=== PATIENT | male | born 1985 | race Two or more races ===

== ENCOUNTER 2025-07-26 09:47 | Inpatient (IN) | payer MEDICAID, SELFPAY ==
[2025-07-26] VITALS (7 sets, daily range): BP systolic 127–146; BP diastolic 69–81; PULSE 84–90; RESP 18–35; TEMP 37.4–38.9; O2SAT 97–100; BMI 27.1; BMI 28.4
--- NOTE | 2025-07-26 10:07 | XR_ITS ---
EXAMINATION: PA lateral chest 2 views TECHNIQUE: Upright PA lateral chest 2 views Date and time: July 26, 2025, 1035 hours INDICATIONS: Coughing beginning 3 days ago. FINDINGS: Minor prominence left ventricle No lobar pneumonia. No pulmonary edema IMPRESSION: No lobar pneumonia Recommend short-term follow-up chest imaging as clinically warranted
--- NOTE | 2025-07-26 10:07 | PD.EDRME ---
Rapid Medical Screening Exam [facility] Arrival date/time: 07/26/25 09:47 40-year-old male presents to the emergency department today for complaints of spider bite to the right side of his chest 4 days ago patient reports pain dizziness and weakness Chief Complaint: Skin/Abscess/Foreign Body Vital signs: Vital Signs Temperature 99.7 F 07/26/25 10:04 Pulse Rate 89 07/26/25 10:04 Respiratory Rate 20 07/26/25 10:04 Blood Pressure 127/69 07/26/25 10:04 Pulse Oximetry (%) 99 07/26/25 10:04 Oxygen Delivery Method Room Air 07/26/25 10:04 Vital signs reviewed by provider: Yes Exam: On exam patient has erythema right chest wall and right axilla Clinical Impression: Initial lab work and imaging ordered patient to be seen in the ER for further evaluation
[2025-07-26 10:31] LABS: Lactate (Lactic Acid) 2.1 mMol/L (0.4-2.0)
[2025-07-26 10:39] LABS: Basophils # (Auto) 0.1 Thou/mm3 (0.0-0.2); Basophils % (Auto) 0 % (0-2.5); Eosinophils # (Auto) 0.0 Thou/mm3 (0.0-0.5); Eosinophils % (Auto) 0 % (0-10); Hematocrit 41.1 % (41.0-53.0); Hemoglobin 13.8 g/dL (13.5-16.0); Immature Granulocytes Auto 0.41 Thou/mm3 (0.00-0.00); Lymphocytes # (Auto) 0.8 Thou/mm3 (1.0-4.8); Lymphocytes % (Auto) 3 % (10-50); Mean Corpuscular HGB Conc 33.6 g/dl (31.0-37.0); Mean Corpuscular Hemoglobin 30.3 pg (25.0-35.0); Mean Corpuscular Volume 90 fL (80-100); Monocytes # (Auto) 2.2 Thou/mm3 (0.0-0.8); Monocytes % (Auto) 8 % (0-12); Neutrophils # (Auto) 23.4 Thou/mm3 (1.8-7.7); Neutrophils % (Auto) 87 % (37-80); Nucleated Red Blood Cell # 0.00 Thou/mm3 (0.00-0.00); Nucleated Red Blood Cell % 0 /100 WBC (0); Platelet Count 216 Thou/mm3 (140-440); RDW Standard Deviation 40.2 fL (35.1-43.9); Red Blood Count 4.55 Miln/mm3 (4.50-5.90); White Blood Count 26.8 Thou/mm3 (3.8-10.6)
[2025-07-26 10:47] LABS: Collection Type, Urine Clean Catch
[2025-07-26 10:51] LABS: Bilirubin,Urine Negative (Negative); Blood,Urine Negative (Negative); Clarity,Urine Clear (Clear/Hazy); Color,Urine Yellow (Lt Yel-Yel); Glucose, Urine Trace (Negative); Ketones,Urine Negative (Negative); Leukocyte Esterase,Urine Negative (Negative); Nitrite,Urine Negative (Negative); PH,Urine 7.5 (5.0-7.0); Protein,Urine 2+ (Neg - Trace); RBC,Urine 1 /hpf (0-3); Specific Gravity,Urine 1.018 (1.001-1.035); Squamous Epithelial Cell,Urine < 1 /hpf (0-5); Urobilinogen,Urine Negative mg/dL (0.0-1.0); WBC,Urine 2 /hpf (0-5)
[2025-07-26 11:01] LABS: Alanine Aminotransferase 76 U/L (10-49); Albumin, Serum 4.6 gm/dL (3.5-5.0); Albumin/Globulin Ratio 1.6 (1.2-2.2); Alkaline Phosphatase 110 U/L (46-116); Anion Gap 10 (7-16); Aspartate Amino Transferase 29 U/L (0-34); BUN/Creatinine Ratio 6 Ratio (12-20); Bilirubin,Total 2.4 mg/dL (0.3-1.2); Blood Urea Nitrogen < 5 mg/dL (9-23); Calcium 9.3 mg/dL (8.3-10.6); Calcium (Corrected) 9.3 mg/dL (8.5-10.1); Carbon Dioxide 20.6 mMol/L (20.0-31.0); Chloride 96 mMol/L (98-107); Creatinine (Component) 0.8 mg/dL (0.6-1.3); Estimated Creatinine Clearance 125.5 mL/min (>60); Globulin 2.9 gm/dL (2.3-3.5); Glucose 204 mg/dL (74-106); Osmolality,Calculated 258 (275-295); Potassium 4.2 mMol/L (3.4-5.1); Procalcitonin 0.38 ng/ml (0.0-0.49); Sodium 127 mMol/L (136-145); Total Protein 7.5 gm/dL (5.7-8.2); eGFR > 60 See Note
[2025-07-26 11:12] LABS: Amphetamine/Methamp Scrn,U Positive (Negative); Barbiturate Screen,Urine Negative (Negative); Benzodiazepines Screen,Urine Negative (Negative); Benzoylecgonine Screen, Ur Negative (Negative); Fentanyl Screen,Urine Negative (Negative); Opiate Screen,Urine Negative (Negative); THC Screen,Urine Positive (Negative)
--- NOTE | 2025-07-26 11:24 | XR_ITS ---
Examination: CT chest with intravenous contrast 2-D sagittal and coronal reconstructions Exam date and time: July 26, 2025, 1243 hours INDICATIONS: Patient complains of chest pain right axillary pain today CTDI:vol (mGy) 14 DLP: (mGycm) 543 Technique: Multiple axial sections of the thorax have been obtained. Sections have been obtained, 3 mm slice thickness. Mediastinal and lung density settings have been obtained. Intravenous contrast administered, 60 cc Isovue-370 2-D sagittal, coronal images obtained. Low dose protocols were performed. One or more of the following dose reduction techniques were used; automated exposure control, adjustment of the mA and/or KV according to patient size, use of iterative reconstruction technique. Findings: Large focus of probable infectious change in the right axilla with edema extending into the breast and right lower lateral chest wall Edema extends beneath the pectoralis muscle right chest Thoracic aorta is not enlarged Pulmonary artery segments are poorly opacified No lobar pneumonia or pulmonary edema No visualized liver or splenic lesion Contracted gallbladder No pancreatic mass IMPRESSION: Very large focus of probable infection in the right axilla extending caudad along the lower chest wall and medial beneath the right pectoralis muscle Consider ultrasound right axilla follow-up to assess fluid content of this probable abscess
--- NOTE | 2025-07-26 11:27 | EKG_ITS ---
[facility] Test Date: 2025-07-26 Pat Name: TREMAYNE ACUNA Department: Room: - Gender: Male Email Marketing Coordinator: : 1985 Requested By: Blane Del Rio Order Number: [id number] Reading MD: Blane Del Rio Measurements Intervals [place] Rate: 88 P: 20 NJ: 123 QRS: 71 QRSD: 89 T: 39 QT: 306 QTc: 371 Interpretive Statements SINUS RHYTHM No previous ECG available for comparison /store/S0/[id number]/ecg/[id number].pdf
--- NOTE | 2025-07-26 11:29 | EDNOTE_ITS ---
<Statement entered by Bisi Espinoza MD - 08/03/25 14:15> As co-signing physician, I was present and available for consult prn. I concur with the plan and care as documented by the midlevel provider. ED General RME/HPI General Chief complaint: Skin/Abscess/Foreign Body Stated complaint: SPIDER BITE, DIZZY, WEAK Time Seen by Provider: 07/26/25 11:18 Arrival date/time: 07/26/25 09:47 CC: Right anterior chest pain and swelling HPI onset noticed 4 days ago calling it a spider bite . Patient took no OTC medicines. Last used methamphetamines 10 days ago denies nausea vomiting shortness of breath or difficulty breathing. RME / HPI RME / HPI narrative: 07/26/25 09:47 40-year-old male presents to the emergency department today for complaints of spider bite to the right side of his chest 4 days ago patient reports pain dizziness and weakness Exam: On exam patient has erythema right chest wall and right axilla Impression: Initial lab work and imaging ordered patient to be seen in the ER for further evaluation Related Data Allergies Allergy/AdvReac Type Severity Reaction Status Date / Time No Known Allergies Allergy Verified 07/26/25 09:50 Review of Systems Review of Systems Narrative Review of Systems: GEN: No fever, no chills, no weight loss EYES: No discharge, no visual changes, no pain HEENT: No ear pain, no congestion, no sore throat PULM: No shortness of breath, no cough, no congestion CV: + chest pain, no dyspnea on exertion, no palpitations GI: No nausea, no vomiting, no diarrhea, no pain, no constipation : No frequency, no urgency, no dysuria MUSC/SKEL: No joint pain, no back pain SKIN: No rash PSYCH: No hallucinations, no depression HEME/LYMPH: No easy bleeding or bruising tendencies NEURO: No weakness, no headache Past Medical History Social History SMOKING STATUS: Never smoker ED Exam Narrative Physical exam: [General: In moderate discomfort but not in any acute distress Head normocephalic HEENT: Within acceptable limits Neck is supple nontender Chest equal chest rise, tenderness edema erythema warm to touch in the right anterior chest extending from the axilla medially, diffuse poorly defined no strong border. No open lesions indurations no exudate. Tenderness in the axilla no lymphadenopathy. Respiratory: Clear to auscultation no wheezes crackles or rubs CV: Rate rhythm is regular no murmurs rubs or clicks Abdomen is soft nontender no masses positive bowel sounds all 4 quadrants Back: No CVA tenderness no spinous process tenderness from cervical spine thoracic and lumbar spine Skin: Erythema and edema to area just medial to the right axilla anterior chest. No open lesions induration ulcerations. Otherwise skin is intact no petechiae rash induration ulceration or crepitus Extremities: Moving all extremity against resistance cap refill less than 2 seconds neurosensory intact Neuro: Awake alert oriented x3 Glascow coma 15 no focal deficits] Course Course Course Narrative: Patient's case clinical finding laboratory results and imaging discussed with Dr. Arteaga who agrees to consult. She is recommending we follow-up with the ultrasound to determine if there are abscess pockets in the cellulitis area Quality Measures none Orders Category Date Time Status COVID-19 Screening Questionnaire NOW Care 07/26/25 15:[address] Screening NOW Care 07/26/25 11:25 Active Sheet Metal Assembler STAT Care 07/26/25 11:27 Active Continuous Pulse Oximetry STAT Care 07/26/25 11:27 Completed Decision to Admit X1 Care 07/26/25 15:30 Active EKG (ED ONLY) *Do not use* NOW Care 07/26/25 11:27 Completed In and Out Catheter X1PRN Care 07/26/25 11:27 Active Insert IV NOW Care 07/26/25 11:27 Completed NPO STAT Care 07/26/25 11:27 Active Saline [Insert IV] NOW Care 07/26/25 11:24 Completed Strict Intake and Output Routine Care 07/26/25 11:27 Ordered Consult to General Surgery Stat Cons 07/26/25 14:[address] chest w con Stat Exams 07/26/25 11:24 Completed EKG (ED Only) Stat Exams 07/26/25 11:27 Draft US extremity nonvascular LMTD Stat Exams 07/26/25 14:50 Completed XR chest 2V Stat Exams 07/26/25 10:07 Completed B-Type Natriuretic Peptide Stat Lab 07/26/25 11:40 Completed Blood Culture (Lab) Stat Lab 07/26/25 10:19 Received Blood Culture (Lab) Stat Lab 07/26/25 11:40 Received CBC Stat Lab 07/26/25 10:19 Completed CBC Stat Lab 07/26/25 11:40 Completed Comprehensive Metabolic Panel Stat Lab 07/26/25 10:19 Completed Drug Screen,Urine Stat Lab 07/26/25 10:43 Completed LDH (Lactate Dehydrogenase) Stat Lab 07/26/25 11:40 Completed Lactate (Lactic Acid) Stat Lab 07/26/25 10:19 Completed Lactic Acid, 3 HR Stat Lab 07/26/25 14:32 Completed Lipase Stat Lab 07/26/25 11:40 Completed Magnesium Stat Lab 07/26/25 11:40 Completed Partial Thromboplastin Time Stat Lab 07/26/25 11:40 Completed Phosphorous Stat Lab 07/26/25 11:40 Completed Procalcitonin Stat Lab 07/26/25 10:19 Completed Procalcitonin Stat Lab 07/26/25 11:40 Completed Prothrombin Time with INR Stat Lab 07/26/25 11:40 Completed Troponin I Stat Lab 07/26/25 11:40 Completed Urinalysis Stat Lab 07/26/25 10:41 Completed Urine Culture Stat Lab 07/26/25 10:43 Received Acetaminophen Ivpb [Ofirmev Inj] Med 07/26/25 12:35 Discontinued 1,000 mg in 100 ml IV NOW Morphine* Inj Med 07/26/25 13:18 Discontinued 4 mg IVP X1 ONE Ondansetron Inj [Zofran Inj] Med 07/26/25 13:18 Discontinued 4 mg IVP X1 ONE Piper/Tazo 3.375 gm Premix [Zosyn] Med 07/26/25 11:25 Discontinued 3.375 gm in 50 ml IV X1 Ringers Lactated 1000 ml [Lactated Ringers] 1,000 ml Med 07/26/25 11:24 Discontinued IV 999 mls/hr Ringers Lactated 1000 ml [Lactated Ringers] 1,000 ml Med 07/26/25 11:24 Discontinued IV 999 mls/hr Ringers Lactated 1000 ml [Lactated Ringers] 1,000 ml Med 07/26/25 11:25 Discontinued IV 999 mls/hr Sodium Chloride 0.9% 1000 ml [Ns] 1,000 ml Med 07/26/25 15:31 Active IV 125 mls/hr Oxygen Delivery NOW RT 07/26/25 11:27 Active Vital Signs Vital signs: Vital Signs Temperature 99.7 F 07/26/25 10:04 Pulse Rate 89 07/26/25 10:04 Respiratory Rate 20 07/26/25 10:04 Blood Pressure 127/69 07/26/25 10:04 Pulse Oximetry (%) 99 07/26/25 10:04 Oxygen Delivery Method Room Air 07/26/25 10:04 Discharge Plan Plan Patient Disposition: Admit Acute Care w/in Hospital Patient condition on transfer: Stable Problem List Clinical Impression: Cellulitis of chest wall CONCHITA/IVETH Supervising Physician CONCHITA/IVETH Supervising Physician: Blane Saucedo ENP [facility] Clinical Information Provided by: patient Medical Records reviewed [facility] Chronic Illness/Social Conditions which may negatively complicate care or outcome(s)-explain: ETOH/drugs/substance abuse EKG Interpretation EKG #1: EKG Interpretation: CBC completed at 1143 shows a ventricular rate of 88 ND interval 123 QRS of 8 9 QTc of 352 there is normal sinus rhythm. Labs Labs: interpreted by wy Lab(s) Interpretation(s): CBC shows a leukocytosis of 26.8. No anemia or thrombocytopenia CMP PT shows sodium 12 glucose of 204 no other significant electrolyte imbalances. T. bili of 2.4 AST 29 ALT 76 alk phos at 110. Lactic at 2.1. Urine shows pH of 7.52+ protein no other indications of urinary tract infection UDS is positive for methamphetamines and THC. Coags within acceptable limits Phosphorus of 2.1 Mag of 1.8. Lipase is normal Procalcitonin at 0.38 Medication Administration(s) Medication Administration History Acetaminophen (Acetaminophen 325 Mg Tablet) 650 mg PO Q6H PRN PRN Reason: PAIN OR FEVER > 100.3 Stop: 08/25/25 16:21 Last Admin: 07/26/25 17:44 Dose: 650 mg Documented By: JOEY Sodium Chloride (Ns) 1,000 mls @ 125 mls/hr IV .Q8H [facility] Stop: 08/25/25 15:30 Last Admin: 07/26/25 16:51 Dose: 125 mls/hr Documented By: JUANI Cefepime HCl 2 gm/ Sodium (Chloride) 50 mls @ 100 mls/hr IV Q8HR [facility] Stop: 08/02/25 19:59 Vancomycin/Sodium Chloride (Vancomycin/Ns 1 Gm Ivpb) 200 mls @ 120 mls/hr IV Q8HR [facility] Stop: 08/02/25 16:44 Ondansetron HCl (Ondansetron Inj 2 Mg/Ml Inj 2 Ml) 4 mg IV Q6H PRN; Protocol PRN Reason: NAUSEA OR VOMITING Stop: 08/25/25 16:21 Pharmacy Consult (Vancomycin Pharmacy To Dose 1 Each Each) 1 each IV QDAY PRN PRN Reason: PROTOCOL Stop: 08/25/25 16:44 Sennosides (Senna Tablet) 2 tab PO BID PRN; Protocol PRN Reason: CONSTIPATION Stop: 08/25/25 16:21 Discontinued Medications Lactated Ringer's (Lactated Ringers) 1,000 mls @ 999 mls/hr IV .Q1H1M ONE Stop: 07/26/25 12:24 Last Infusion: 07/26/25 13:00 Dose: Infused Documented By: Admin: 07/26/25 11:45 Dose: 999 mls/hr Documented By: TM Lactated Ringer's (Lactated Ringers) 1,000 mls @ 999 mls/hr IV .Q1H1M ONE Stop: 07/26/25 12:24 Last Infusion: 07/26/25 13:00 Dose: Infused Documented By: Admin: 07/26/25 11:45 Dose: 999 mls/hr Documented By: TM Lactated Ringer's (Lactated Ringers) 1,000 mls @ 999 mls/hr IV .Q1H1M ONE Stop: 07/26/25 12:25 Last Infusion: 07/26/25 13:00 Dose: Infused Documented By: Admin: 07/26/25 11:45 Dose: 999 mls/hr Documented By: TM Piperacillin/Tazobactam/Dextrose (Zosyn) 3.375 gm in 50 mls @ 100 mls/hr IV X1 ONE; Protocol Stop: 07/26/25 11:54 Last Infusion: 07/26/25 12:12 Dose: Infused Documented By: Admin: 07/26/25 11:42 Dose: 100 mls/hr Documented By: TM Acetaminophen (Ofirmev Inj) 1,000 mg in 100 mls @ 250 mls/hr IV NOW ONE Stop: 07/26/25 12:58 Last Infusion: 07/26/25 13:51 Dose: Infused Documented By: Admin: 07/26/25 13:27 Dose: 250 mls/hr Documented By: TM Morphine Sulfate (Morphine Sulf Inj 4 Mg/Ml Vial) 4 mg IVP X1 ONE Stop: 07/26/25 13:19 Last Admin: 07/26/25 13:29 Dose: 4 mg Documented By: TM Ondansetron HCl (Ondansetron Inj 2 Mg/Ml Inj 2 Ml) 4 mg IVP X1 ONE; Protocol Stop: 07/26/25 13:19 Last Admin: 07/26/25 13:30 Dose: 4 mg Documented By: JUANI
[2025-07-26] MEDS: PIPER/TAZO 3.375 GM PREMIX 3.375 GM/50 ML BAG IV (11:42)
[2025-07-26] MEDS: RINGERS LACTATED 1000 ML 1,000 ML 999 ML IV ×3 (11:45)
[2025-07-26 11:48] LABS: Basophils # (Auto) 0.1 Thou/mm3 (0.0-0.2); Basophils % (Auto) 0 % (0-2.5); Eosinophils # (Auto) 0.1 Thou/mm3 (0.0-0.5); Eosinophils % (Auto) 0 % (0-10); Hematocrit 39.2 % (41.0-53.0); Hemoglobin 13.1 g/dL (13.5-16.0); Immature Granulocytes Auto 0.33 Thou/mm3 (0.00-0.00); Lymphocytes # (Auto) 0.6 Thou/mm3 (1.0-4.8); Lymphocytes % (Auto) 2 % (10-50); Mean Corpuscular HGB Conc 33.4 g/dl (31.0-37.0); Mean Corpuscular Hemoglobin 30.0 pg (25.0-35.0); Mean Corpuscular Volume 90 fL (80-100); Monocytes # (Auto) 2.0 Thou/mm3 (0.0-0.8); Monocytes % (Auto) 8 % (0-12); Neutrophils # (Auto) 22.8 Thou/mm3 (1.8-7.7); Neutrophils % (Auto) 88 % (37-80); Nucleated Red Blood Cell # 0.00 Thou/mm3 (0.00-0.00); Nucleated Red Blood Cell % 0 /100 WBC (0); Platelet Count 217 Thou/mm3 (140-440); RDW Standard Deviation 40.1 fL (35.1-43.9); Red Blood Count 4.36 Miln/mm3 (4.50-5.90); White Blood Count 25.9 Thou/mm3 (3.8-10.6)
[2025-07-26 12:12] LABS: INR 1.1 (0.9-1.3); Partial Thromboplastin Time 34.7 Seconds (22.0-36.0); Prothrombin Time 11.4 Seconds (9.0-12.2)
[2025-07-26 12:18] LABS: LDH (Lactate Dehydrogenase) 145 U/L (120-246); Lipase 24 U/L (12-53); Magnesium 1.8 mg/dL (1.6-2.6); Phosphorous 2.1 mg/dL (2.4-5.1); Procalcitonin 0.38 ng/ml (0.0-0.49); Troponin I 0.033 ng/mL (0.0-0.045)
[2025-07-26 12:35] LABS: B-Type Natriuretic Peptide 48 pg/mL (0-100)
[2025-07-26 13:27] LABS: Reflex Lactate? Y
[2025-07-26] MEDS: ACETAMINOPHEN IVPB 1,000 MG/100 ML VIAL 250 MG IV (13:27)
[2025-07-26] MEDS: MORPHINE SULF INJ 4 MG/ML VIAL IVP (13:29)
[2025-07-26] MEDS: ONDANSETRON INJ 2 MG/ML INJ 2 ML 4 MG IVP (13:30)
[2025-07-26 14:44] LABS: Lactic Acid, 3 HR 2.8 mMol/L (0.4-2.0)
--- NOTE | 2025-07-26 14:50 | XR_ITS ---
EXAMINATION: Ultrasound soft tissue right axilla TECHNIQUE: Grayscale sonographic images soft tissue right axilla Date and time: July 26, 2025, 1452 hours INDICATIONS: Right arm. Redness swelling and pain this week FINDINGS: Diffuse edema in the axilla Enlarged lymph node 2.6 x 1.5 x 3.1 cm No drainable fluid collection IMPRESSION: Diffuse edema in the right axilla, no fluid-filled drainable abscess
--- NOTE | 2025-07-26 16:26 | PD.RESHP ---
Documentation for date of: 07/26/25 HPI History of Present Illness History of present illness: Patient the patient is a 40-year-old male with no reported past medical history, positive meth and marijuana use, patient presents to the emergency department today for complaints of pain and swelling in the right side of his chest and axilla for the past 4 days. Patient reported he had fever and shaking chills at home. He had been taking ibuprofen and some other unknown medications for pain relief, but today the pain was worse so he decided to come to the emergency room for evaluation. Patient reported he is not entirely sure if this was a spider bite, but he had a small erythematous area which rapidly spread, now patient has swelling in his right arm. Patient reported that after receiving medications in the emergency room his pain is manageable now. The patient denies any chest pain, shortness of breath, nausea vomiting or diarrhea. Denied dysuria. Denied swelling in groin or in his neck. Denied history of diabetes. ER course: In the ER, sepsis alert was initiated patient was given Zosyn 3.375 g, Tylenol, IV morphine 4 mg, Zofran x 1, and 3 L IV fluid bolus. Blood and urine cultures were taken. CT scan of the chest showed very large focus of probable infection in the right axilla extending along the lower chest wall beneath right pectoralis muscle, recommended ultrasound to rule out probable abscess, ultrasound right arm showed diffuse edema in the axilla, enlarged lymph node 2.6 x1.5 x 3.1 cm. No fluid-filled drainable abscess. CBC pertinent for leukocytosis, WBC 25.9, with significant neutrophilia, but absolute lymphocyte is decreased 0.6, increased monocytes, CHEM panel shows sodium 127, glucose 204, lactic acid 2.1, T. bili 2.4, ALT 76. Procalcitonin 0.38. Urinalysis shows 2+ proteins in the urine, U tox positive for meth and marijuana. EKG showed sinus rhythm. PMH: Denied any pertinent medical history Past Surgical Hx: Denied past surgical history Family Hx: No pertinent family history Social Hx: Patient endorsed using methamphetamines, last reported was over 10 days ago, reported smoking marijuana, denied alcohol or cigarette use. Patient did endorse taking unknown medications from his contacts With pain relief in addition to marijuana. Review of Systems Review of Systems Systems Reviewed: All systems reviewed, normal except as documented Narrative Review of Systems: General: + fevers + chills HEENT: Denies congestion or sore throat Heart: Denies chest pain or palpitations Lungs: Denies shortness of breath or cough Abdomen: Denies diarrhea, nausea, vomiting, constipation, bright red blood per rectum or melena Genitourinary: Denies frequency, urgency, dysuria, or hematuria Musculoskeletal: Denies joint pain, denies muscular pain Neurology: Denies any numbness, tingling Review of systems otherwise negative except what is mentioned above. Past Medical History Past Medical History CARDIAC: Negative Cardiac Disorders or Congestive Heart Failure RESPIRATORY: Negative Chronic Obstructive Pulmonary Disease (COPD) or Asthma GENITOURINARY: Negative Renal Disease ENDOCRINE: Negative Diabetes Mellitus Type 1 or Diabetes Mellitus Type 2 HEMATOLOGIC: Negative Sickle Cell Disease Social History SMOKING STATUS: Never smoker Exam Vital Signs Temp Pulse Resp BP Pulse Ox O2 Del Method 100.3 F 89 35 H 127/78 100 Room Air 07/26/25 15:30 07/26/25 12:23 07/26/25 12:23 07/26/25 12:23 07/26/25 12:23 07/26/25 12:23 Narrative Exam General: AOx3, cooperative, in mild distress due to pain, well-built middle-aged male. Skin: Intact, no cyanosis or edema noted. Noted tattoos on the skin. Noted swelling and erythema on the anterior right chest wall extending to right upper arm involving the axilla, noticed prominent bulge in the axilla. No eschar or active drainage noted. HEENT: Atraumatic/normocephalic, LARISSA, neck supple Heart: RRR, S1 and S2 without clicks or murmurs Lungs: Clear on auscultation bilaterally, no difficulty breathing Abdomen: Soft, nontender. Bowel sounds present . Vascular: Peripheral pulses palpable Neuro: No focal neurological deficits noted. Results: Labs 07/27/25 05:42 07/27/25 05:42 Labs: Short CBC 07/26/25 07/26/25 Range/Units 10:19 11:40 WBC 26.8 H 25.9 H (3.8-10.6) Thou/mm3 Hgb 13.8 13.1 L (13.5-16.0) g/dL Hct 41.1 39.2 L (41.0-53.0) % Plt Count 216 217 (140-440) Thou/mm3 BMP 07/26/25 10:19 Sodium 127 L Potassium 4.2 Chloride 96 L Carbon Dioxide 20.6 BUN < 5 L Creatinine 0.8 Glucose 204 H Calcium 9.3 Cardiac Enzymes 07/26/25 Range/Units 11:40 Troponin I 0.033 (0.0-0.045) ng/mL Liver Function 07/26/25 Range/Units 10:19 Total Bilirubin 2.4 H (0.3-1.2) mg/dL AST 29 (0-34) U/L ALT 76 H (10-49) U/L Alkaline Phosphatase 110 (46-116) U/L Albumin 4.6 (3.5-5.0) gm/dL Urine 07/26/25 Range/Units 10:41 Urine Color Yellow (Lt Yel-Yel) Urine Clarity Clear (Clear/Hazy) Urine pH 7.5 H (5.0-7.0) Ur Specific [place] 1.018 (1.001-1.035) Urine Protein 2+ A (Neg - Trace) Urine Glucose (UA) Trace (Negative) Quality Measures Quality Measures VTE prophylaxis Medications Home Medications and Allergies Home Medications ?Medication ?Instructions ?Recorded ?Confirmed ?Type diphenhydramine HCl 25 mg capsule 50 mg PO Q8H PRN allergy symptoms 07/26/25 07/26/25 History (Benadryl) ibuprofen 600 mg tablet 600 mg PO .q5 PRN pain 07/26/25 07/26/25 History Allergies Allergy/AdvReac Type Severity Reaction Status Date / Time No Known Allergies Allergy Verified 07/26/25 09:50 Visit Medications Acetaminophen (Acetaminophen 325 Mg Tablet) 650 mg PO Q6H PRN PRN Reason: PAIN OR FEVER > 100.3 Stop: 08/25/25 16:21 Sodium Chloride (Ns) 1,000 mls @ 125 mls/hr IV .Q8H SAI Stop: 08/25/25 15:30 Ondansetron HCl (Ondansetron Inj 2 Mg/Ml Inj 2 Ml) 4 mg IV Q6H PRN; Protocol PRN Reason: NAUSEA OR VOMITING Stop: 08/25/25 16:21 Sennosides (Senna Tablet) 2 tab PO BID PRN; Protocol PRN Reason: CONSTIPATION Stop: 08/25/25 16:21 Discontinued Medications Lactated Ringer's (Lactated Ringers) 1,000 mls @ 999 mls/hr IV .Q1H1M ONE Stop: 07/26/25 12:24 Last Infusion: 07/26/25 13:00 Dose: Infused Lactated Ringer's (Lactated Ringers) 1,000 mls @ 999 mls/hr IV .Q1H1M ONE Stop: 07/26/25 12:24 Last Infusion: 07/26/25 13:00 Dose: Infused Lactated Ringer's (Lactated Ringers) 1,000 mls @ 999 mls/hr IV .Q1H1M ONE Stop: 07/26/25 12:25 Last Infusion: 07/26/25 13:00 Dose: Infused Piperacillin/Tazobactam/Dextrose (Zosyn) 3.375 gm in 50 mls @ 100 mls/hr IV X1 ONE; Protocol Stop: 07/26/25 11:54 Last Infusion: 07/26/25 12:12 Dose: Infused Acetaminophen (Ofirmev Inj) 1,000 mg in 100 mls @ 250 mls/hr IV NOW ONE Stop: 07/26/25 12:58 Last Infusion: 07/26/25 13:51 Dose: Infused Morphine Sulfate (Morphine Sulf Inj 4 Mg/Ml Vial) 4 mg IVP X1 ONE Stop: 07/26/25 13:19 Last Admin: 07/26/25 13:29 Dose: 4 mg Ondansetron HCl (Ondansetron Inj 2 Mg/Ml Inj 2 Ml) 4 mg IVP X1 ONE; Protocol Stop: 07/26/25 13:19 Last Admin: 07/26/25 13:30 Dose: 4 mg Assessment & Plan Plan Pain patient the patient is a 40-year-old male with no reported past medical history, positive meth and marijuana use, patient presents to the emergency department today for complaints of pain and swelling in the right side of his chest and axilla for the past 4 days. Patient reported he had fever and shaking chills at home. He had been taking ibuprofen and some other unknown medications for pain relief, but today the pain was worse so he decided to come to the emergency room for evaluation. Patient reported he is not entirely sure if this was a spider bite, but he had a small erythematous area which rapidly spread, now patient has swelling in his right arm. Patient reported that after receiving medications in the emergency room his pain is manageable now. #Sepsis secondary to cellulitis In the ER, sepsis alert was initiated patient was given Zosyn 3.375 g, Tylenol, IV morphine 4 mg, Zofran x 1, and 3 L IV fluid bolus. Blood and urine cultures were taken. On physical exam patient has swelling in the right axilla, CT was concerning for possible fluid-filled abscess, with extensive area involving lower chest wall beneath the right pectoralis muscle, ultrasound right arm ruled out abscess, likely enlarged lymph node. General surgery is consulted, Dr. Arteaga to follow the patient recommended admit the patient with IV antibiotics. Antibiotic therapy with vancomycin and cefepime, will de-escalate once microbiology results. ? IV vancomycin, pharmacy to dose?pending MRSA nasal screen, initiated 07/26/2025 - ? IV cefepime 2 g every 8 hours, initiated 07/26/2025 - ? Gen surgery, dr Arteaga is consulted, appreciete recommendations. #Transaminasemia Noted elevated bilirubin and elevated ALT, denied IV drug abuse, will order hepatitis panel. ?Continue to monitor ?Viral hepatitis panel ordered #Lymphopenia Leukocytosis, likely in the setting of sepsis with neutrophilia, but absolute lymphocyte is decreased 0.6, concern for STDs, will order HIV serology. #Hyperglycemia Patient denied history of diabetes mellitus, noted glucose 204, ?Ordered A1c Disposition: Med surg , IV abx, pending gen surg recs. NPO at midnight. DVT prophylaxis: Heparin subcut GI prophylaxis: none Diet: regular Lines: PIV CODE STATUS: Full The plan of care was discussed with my attending physician DO Nikki Villareal MD PGY3 This document was completed utilizing speech recognition software. Grammatical errors, random word insertions, pronoun errors, and incomplete sentences are an occasional consequence of this system due to software limitations, ambient noise, and hardware issues. Any formal questions or concerns about the content, text or information contained within the body of this dictation should be directly addressed to the provider for clarification. Attending Provider Attestation/Addendum Jose, Anila Poole DO, attest that I was physically present for the rey portions of the service and evaluated the patient with the resident and I reviewed and discussed the case with the resident and agree with the resident's findings and plans of care as documented above Patient is a 40 yo male with hx of meth and marijuana use who presented to the ED with four days of worsening pain in his right axilla. Patient denies any breaks in skin, but suspects a possible spider bite. He reports worsening edema, tenderness, and erythema of the right anterior chest. Patient has limited ROM of his right shoulder, with about 90 degrees of flexion due to pain. He endorses fevers and chills.Patient denies any pressure-like chest pain, shortness of breath, nausea or vomiting otherwise. Patient states he used meth about 10 days ago, but does not inject any drugs. He denies any tobacco or alcohol use otherwise. CT chest was done in ED showing Very large focus of probable infection in the right axilla extending caudad along the lower chest wall and medial beneath the right pectoralis muscle. US of extremity shows diffuse edema in axilla, but no focus of abscess. General surgeon was consulted from ED. Will admit patient to med/ tele for sepsis 2/2 cellulitis of axilla. Will start on IV fluids, vancomycin and cefepime.
[2025-07-26] MEDS: SODIUM CHLORIDE 0.9% 1000 ML 1,000 ML 125 ML IV (16:51)
[2025-07-26 17:16] LABS: Glucose Estimated Average 108 mg/dL (80-131); Hemoglobin A1C 5.4 % Hgb (4.8-6.0)
[2025-07-26 17:32] LABS: HIV (1&2) Antibody Rapid Non-Reactive
[2025-07-26 17:37] LABS: Syphilis Reactive (Nonreactive)
[2025-07-26 17:38] LABS: MHATP/TP-PA* See Sep Rpt
[2025-07-26] MEDS: ACETAMINOPHEN 325 MG TABLET 650 MG PO (17:44)
[2025-07-26 18:39] LABS: Hepatitis A Antibody IgM Non Reactive (Non React); Hepatitis B Core Antibody IgM Non Reactive (Non React); Hepatitis B Surface Antigen Non Reactive (Non React); Hepatitis C Antibody Non Reactive (Non React)
[2025-07-26] MEDS: VANCOMYCIN/NS 1 GM IVPB 200 ML IV (19:34)
[2025-07-26 20:18] LABS: Collection Type, Urine Clean Catch; RBC,Urine 0 /hpf (0-3)
--- NOTE | 2025-07-26 20:19 | PC.NURSE ---
T=102.0- Cooling measures applied.
[2025-07-26 20:25] LABS: Bilirubin,Urine Negative (Negative); Blood,Urine Negative (Negative); Clarity,Urine Clear (Clear/Hazy); Color,Urine Lt-Yellow (Lt Yel-Yel); Glucose, Urine Negative (Negative); Ketones,Urine Negative (Negative); Leukocyte Esterase,Urine Negative (Negative); Nitrite,Urine Negative (Negative); PH,Urine 7.0 (5.0-7.0); Protein,Urine Trace (Neg - Trace); Specific Gravity,Urine 1.005 (1.001-1.035); Squamous Epithelial Cell,Urine < 1 /hpf (0-5); Urobilinogen,Urine Negative mg/dL (0.0-1.0); WBC,Urine < 1 /hpf (0-5)
[2025-07-26] MEDS: CEFEPIME INJ 2 GM in SODIUM CHLORIDE 0.9% (Popper) 50 ML IV (21:45)
[2025-07-27] VITALS (21 sets, daily range): BP systolic 111–159; BP diastolic 71–92; PULSE 70–98; RESP 17–96; TEMP 36.3–39.4; O2SAT 93–98
[2025-07-27] MEDS: ACETAMINOPHEN 325 MG TABLET 650 MG PO ×2 (00:02→19:06)
--- NOTE | 2025-07-27 00:06 | PC.NURSE ---
T=102.3 axilla- Cooling measures applied.
--- NOTE | 2025-07-27 00:20 | PC.NURSE ---
Tanisha (friend) called rn re update. Permission from pt ok to give info to Tanisha. Updated Tanisha re pt having fever, and had had dinner.
--- NOTE | 2025-07-27 00:52 | PC.NURSE ---
Dr. Booker called rn re fever- w/ orders made and carried out.
[2025-07-27] MEDS: ACETAMINOPHEN IVPB 1,000 MG/100 ML VIAL 250 MG IV (01:07)
[2025-07-27] MEDS: VANCOMYCIN/NS 1 GM IVPB 200 ML IV ×3 (05:53→22:37)
[2025-07-27 06:22] LABS: Basophils # (Auto) 0.1 Thou/mm3 (0.0-0.2); Basophils % (Auto) 0 % (0-2.5); Eosinophils # (Auto) 0.0 Thou/mm3 (0.0-0.5); Eosinophils % (Auto) 0 % (0-10); Hematocrit 38.2 % (41.0-53.0); Hemoglobin 12.7 g/dL (13.5-16.0); Immature Granulocytes Auto 0.26 Thou/mm3 (0.00-0.00); Lymphocytes # (Auto) 1.1 Thou/mm3 (1.0-4.8); Lymphocytes % (Auto) 5 % (10-50); Mean Corpuscular HGB Conc 33.2 g/dl (31.0-37.0); Mean Corpuscular Hemoglobin 30.7 pg (25.0-35.0); Mean Corpuscular Volume 92 fL (80-100); Monocytes # (Auto) 3.1 Thou/mm3 (0.0-0.8); Monocytes % (Auto) 12 % (0-12); Neutrophils # (Auto) 20.9 Thou/mm3 (1.8-7.7); Neutrophils % (Auto) 82 % (37-80); Nucleated Red Blood Cell # 0.00 Thou/mm3 (0.00-0.00); Nucleated Red Blood Cell % 0 /100 WBC (0); Platelet Count 241 Thou/mm3 (140-440); RDW Standard Deviation 41.9 fL (35.1-43.9); Red Blood Count 4.14 Miln/mm3 (4.50-5.90); White Blood Count 25.4 Thou/mm3 (3.8-10.6)
[2025-07-27 06:30] LABS: INR 1.1 (0.9-1.3); Prothrombin Time 11.4 Seconds (9.0-12.2)
[2025-07-27] MEDS: CEFEPIME INJ 2 GM in SODIUM CHLORIDE 0.9% (Popper) 50 ML IV ×3 (06:53→21:36)
[2025-07-27 07:44] LABS: Alanine Aminotransferase 54 U/L (10-49); Albumin, Serum 4.2 gm/dL (3.5-5.0); Albumin/Globulin Ratio 1.6 (1.2-2.2); Alkaline Phosphatase 109 U/L (46-116); Anion Gap 12 (7-16); Aspartate Amino Transferase 21 U/L (0-34); BUN/Creatinine Ratio 8 Ratio (12-20); Bilirubin,Total 1.5 mg/dL (0.3-1.2); Blood Urea Nitrogen 6 mg/dL (9-23); Calcium 9.1 mg/dL (8.3-10.6); Calcium (Corrected) 9.1 mg/dL (8.5-10.1); Carbon Dioxide 24.0 mMol/L (20.0-31.0); Cardiac Risk Estimate 3.8 RATIO (4.0-6.7); Chloride 103 mMol/L (98-107); Cholesterol 120 mg/dL (132-200); Creatinine (Component) 0.8 mg/dL (0.6-1.3); Estimated Creatinine Clearance 137.2 mL/min (>60); Globulin 2.6 gm/dL (2.3-3.5); Glucose 148 mg/dL (74-106); HDL Cholesterol 32 mg/dL (40-60); LDL Cholesterol,Calculated 69 mg/dL (0-130); Magnesium 2.1 mg/dL (1.6-2.6); Osmolality,Calculated 278 (275-295); Phosphorous 4.2 mg/dL (2.4-5.1); Potassium 4.2 mMol/L (3.4-5.1); Sodium 139 mMol/L (136-145); Total Protein 6.8 gm/dL (5.7-8.2); Triglycerides 96 mg/dL (30-150); eGFR > 60 See Note
--- NOTE | 2025-07-27 10:45 | PC.NURSE ---
Patient was taken to surgery at this time.
--- NOTE | 2025-07-27 10:48 | ESPR_ITS ---
<Statement entered by Malachi Danielle MD - 07/28/25 15:53> I reviewed above note and agree with findings and plans. I have also personally examined the patient with medicine team and went over assessment and plan with medical team including international trade manager and resident physician. Documentation for date of: 07/27/25 Subjective Subjective Interval history: Patient was seen at the bedside. No acute events overnight. The patient reports ongoing pain and swelling on the right side of his chest and axilla for the past 4 days. He also experienced fever and shaking chills at home. The patient is unsure if the issue is related to a spider bite, but he noted a small erythematous area that rapidly spread, and now he has noticeable swelling in his right arm. Gen surg made incision was made over the right lateral chest. Approximately 30 cc of pus was returned in total. Exam Vital Signs Temp Pulse Resp BP Pulse Ox O2 Del Method 98.8 F 70 17 135/73 H 97 Room Air 07/27/25 08:00 07/27/25 08:00 07/27/25 08:00 07/27/25 08:00 07/27/25 08:00 07/27/25 08:00 Narrative Exam General: AOx3, cooperative, in mild distress due to pain, well-built middle-aged male. Skin: Intact, no cyanosis or edema noted. Noted tattoos on the skin. Noted swelling and erythema on the anterior right chest wall extending to right upper arm involving the axilla, noticed prominent bulge in the axilla. No eschar or active drainage noted. HEENT: Atraumatic/normocephalic, LARISSA, neck supple Heart: RRR, S1 and S2 without clicks or murmurs Lungs: Clear on auscultation bilaterally, no difficulty breathing Abdomen: Soft, nontender. Bowel sounds present . Vascular: Peripheral pulses palpable Neuro: No focal neurological deficits noted Objective Labs 07/27/25 05:42 07/27/25 05:42 Labs: Laboratory Results - last 24 hr 07/26/25 07/26/25 07/26/25 10:19 10:41 10:43 WBC RBC Hgb Hct MCV MCH MCHC RDW Std Deviation Plt Count Neut % (Auto) Lymph % (Auto) [place] % (Auto) Eos % (Auto) Baso % (Auto) Neut # (Auto) Lymph # (Auto) [place] # (Auto) Eos # (Auto) Baso # (Auto) Immature Gran # (Auto) Absolute Nucleated RBC Immature Gran % Nucleated RBC % PT INR APTT Sodium 127 L Potassium 4.2 Chloride 96 L Carbon Dioxide 20.6 Anion Gap 10 BUN < 5 L Creatinine 0.8 Estim Creat Clear Calc 125.5 eGFR > 60 BUN/Creatinine Ratio 6 L Glucose [address] Glu mg/dL 108 Hemoglobin A1c 5.4 Calculated Osmolality 258 L Lactic Acid Calcium 9.3 Corrected Calcium 9.3 Phosphorus Magnesium Total Bilirubin 2.4 H AST 29 ALT 76 H Alkaline Phosphatase 110 Lactate Dehydrogenase Troponin I B-Natriuretic Peptide Total Protein 7.5 Albumin 4.6 Globulin 2.9 Albumin/Globulin Ratio 1.6 Triglycerides Cholesterol LDL Cholesterol, Calc HDL Cholesterol Cholesterol/HDL Ratio Lipase Procalcitonin 0.38 Ur Collection Type Clean Catch Urine Color Yellow Urine Clarity Clear Urine pH 7.5 H Ur Specific [place] 1.018 Urine Protein 2+ A Urine Glucose (UA) Trace Urine Ketones Negative Urine Blood Negative Urine Nitrite Negative Urine Bilirubin Negative Urine Urobilinogen (Auto) Negative Ur Leukocyte Esterase Negative Urine RBC 1 Urine WBC 2 Ur Squamous Epith Cells < 1 Urine Bacteria None Urine Opiates Screen Negative Urine Fentanyl Screen Negative Ur Barbiturates Screen Negative U Amphetamin/Meth Scrn Positive A U Benzodiazepines Scrn Negative U Cocaine Metab Screen Negative U Marijuana (THC) Screen Positive A Syphilis Serology Reactive A Hepatitis A IgM Ab Non Reactive Hep Bs Antigen Non Reactive Hep B Core IgM Ab Non Reactive Hepatitis C Antibody Non Reactive HIV 1&2 Antibody Rapid Non-Reactive 07/26/25 07/26/25 07/26/25 11:40 14:32 19:48 WBC 25.9 H RBC 4.36 L Hgb 13.1 L Hct 39.2 L MCV 90 MCH 30.0 MCHC 33.4 RDW Std Deviation 40.1 Plt Count 217 Neut % (Auto) 88 H Lymph % (Auto) 2 L [place] % (Auto) 8 Eos % (Auto) 0 Baso % (Auto) 0 Neut # (Auto) 22.8 H Lymph # (Auto) 0.6 L [place] # (Auto) 2.0 H Eos # (Auto) 0.1 Baso # (Auto) 0.1 Immature Gran # (Auto) 0.33 H Absolute Nucleated RBC 0.00 Immature Gran % 1 H Nucleated RBC % 0 PT 11.4 INR 1.1 APTT 34.7 Sodium Potassium Chloride Carbon Dioxide Anion Gap BUN Creatinine Estim Creat Clear Calc eGFR BUN/Creatinine Ratio Glucose Estimated Ave Glu mg/dL Hemoglobin A1c Calculated Osmolality Lactic Acid 2.8 H Calcium Corrected Calcium Phosphorus 2.1 L Magnesium 1.8 Total Bilirubin AST ALT Alkaline Phosphatase Lactate Dehydrogenase 145 Troponin I 0.033 B-Natriuretic Peptide 48 Total Protein Albumin Globulin Albumin/Globulin Ratio Triglycerides Cholesterol LDL Cholesterol, Calc HDL Cholesterol Cholesterol/HDL Ratio Lipase 24 Procalcitonin 0.38 Ur Collection Type Clean Catch Urine Color Lt-Yellow Urine Clarity Clear Urine pH 7.0 Ur Specific [place] 1.005 Urine Protein Trace Urine Glucose (UA) Negative Urine Ketones Negative Urine Blood Negative Urine Nitrite Negative Urine Bilirubin Negative Urine Urobilinogen (Auto) Negative Ur Leukocyte Esterase Negative Urine RBC 0 Urine WBC < 1 Ur Squamous Epith Cells < 1 Urine Bacteria None Urine Opiates Screen Urine Fentanyl Screen Ur Barbiturates Screen U Amphetamin/Meth Scrn U Benzodiazepines Scrn U Cocaine Metab Screen U Marijuana (THC) Screen Syphilis Serology Hepatitis A IgM Ab Hep Bs Antigen Hep B Core IgM Ab Hepatitis C Antibody HIV 1&2 Antibody Rapid 07/27/25 05:42 WBC 25.4 H RBC 4.14 L Hgb 12.7 L Hct 38.2 L MCV 92 MCH 30.7 MCHC 33.2 RDW Std Deviation 41.9 Plt Count 241 Neut % (Auto) 82 H Lymph % (Auto) 5 L [place] % (Auto) 12 Eos % (Auto) 0 Baso % (Auto) 0 Neut # (Auto) 20.9 H Lymph # (Auto) 1.1 [place] # (Auto) 3.1 H Eos # (Auto) 0.0 Baso # (Auto) 0.1 Immature Gran # (Auto) 0.26 H Absolute Nucleated RBC 0.00 Immature Gran % 1 H Nucleated RBC % 0 PT 11.4 INR 1.1 APTT Sodium 139 D Potassium 4.2 Chloride 103 Carbon Dioxide 24.0 Anion Gap 12 BUN 6 L Creatinine 0.8 Estim Creat Clear Calc 137.2 eGFR > 60 BUN/Creatinine Ratio 8 L Glucose [address] Glu mg/dL Hemoglobin A1c Calculated Osmolality 278 Lactic Acid Calcium 9.1 Corrected Calcium 9.1 Phosphorus 4.2 Magnesium 2.1 Total Bilirubin 1.5 H D AST 21 ALT 54 H Alkaline Phosphatase 109 Lactate Dehydrogenase Troponin I B-Natriuretic Peptide Total Protein 6.8 Albumin 4.2 Globulin 2.6 Albumin/Globulin Ratio 1.6 Triglycerides 96 Cholesterol 120 L LDL Cholesterol, Calc 69 HDL Cholesterol 32 L Cholesterol/HDL Ratio 3.8 L Lipase Procalcitonin Ur Collection Type Urine Color Urine Clarity Urine pH Ur Specific [place] Urine Protein Urine Glucose (UA) Urine Ketones Urine Blood Urine Nitrite Urine Bilirubin Urine Urobilinogen (Auto) Ur Leukocyte Esterase Urine RBC Urine WBC Ur Squamous Epith Cells Urine Bacteria Urine Opiates Screen Urine Fentanyl Screen Ur Barbiturates Screen U Amphetamin/Meth Scrn U Benzodiazepines Scrn U Cocaine Metab Screen U Marijuana (THC) Screen Syphilis Serology Hepatitis A IgM Ab Hep Bs Antigen Hep B Core IgM Ab Hepatitis C Antibody HIV 1&2 Antibody Rapid Quality Measures Quality Measures none Assessment & Plan Assessment Current Active Medications: Generic Name Dose Route Start Last Admin Trade Name Freq PRN Reason Stop Dose Admin Acetaminophen 650 mg 07/26/25 16:22 07/27/25 00:02 Acetaminophen 325 Mg Tablet PO 08/25/25 16:21 650 mg Q6H PRN Administration PAIN OR FEVER > 100.3 Sodium Chloride 1,000 mls @ 125 mls/hr 07/26/25 15:31 07/26/25 16:51 Ns IV 08/25/25 15:30 125 mls/hr .Q8H SAI Administration Cefepime HCl 2 gm/ Sodium 50 mls @ 100 mls/hr 07/26/25 20:00 07/27/25 06:53 Chloride IV 08/02/25 19:59 100 mls/hr Q8HR SAI Administration Vancomycin/Sodium Chloride 200 mls @ 120 mls/hr 07/26/25 16:45 07/27/25 05:53 Vancomycin/Ns 1 Gm Ivpb IV 08/02/25 16:44 120 mls/hr Q8HR SAI Administration Protocol Ondansetron HCl 4 mg 07/26/25 16:22 Ondansetron Inj 2 Mg/Ml Inj 2 Ml IV 08/25/25 16:21 Q6H PRN NAUSEA OR VOMITING Protocol Pharmacy Consult 1 each 07/26/25 16:45 Vancomycin Pharmacy To Dose 1 Each Each IV 08/25/25 16:44 QDAY PRN PROTOCOL Sennosides 2 tab 07/27/25 09:00 07/27/25 08:10 Senna Tablet PO 08/26/25 08:59 2 tab QDAY SAI Administration Protocol Plan 40-year-old male with no reported past medical history, positive meth and marijuana use, patient presents to the emergency department today for complaints of pain and swelling in the right side of his chest and axilla for the past 4 days. Patient admitted for spesis 2/2 to cellulitis of right axilla. #Sepsis secondary to cellulitis In the ER, a sepsis alert was activated, and the patient received Zosyn 3.375 g, Tylenol, IV morphine 4 mg, Zofran, and a 3 L IV fluid bolus. Blood and urine cultures were collected. On physical exam, there is swelling in the right axilla, and CT imaging is concerning for a fluid-filled abscess with extensive involvement of the lower chest wall beneath the right pectoralis muscle. However, ultrasound of the right arm ruled out an abscess, suggesting an enlarged lymph node instead. General surgery is consulted, Dr. Arteaga to follow the patient recommended admit the patient with IV antibiotics. Antibiotic therapy with vancomycin and cefepime, will de-escalate once microbiology results. Plan: ? Gen surgery, dr Arteaga is consulted, appreciate recommendations. ? Gen surg made incision was made over the right lateral chest. Approximately 30 cc of pus was returned in total. ? IV vancomycin, pharmacy to dose?pending MRSA nasal screen, initiated 07/26/2025 - ? IV cefepime 2 g every 8 hours, initiated 07/26/2025 - #Syphilis Serology positive Plan - Pending confirmatory (Tpallidum ab) #Transaminasemia Noted elevated bilirubin and elevated ALT, denied IV drug abuse Viral hepatitis panel negative Plan ? Continue to monitor #Lymphopenia Leukocytosis, likely in the setting of sepsis with neutrophilia, but absolute lymphocyte is decreased 0.6, concern for STDs, will order HIV serology. Health maintenance Disposition: Med surg DVT prophylaxis: Heparin subcut GI prophylaxis: none Diet: regular CODE STATUS: Full Case discussed with my attending Dr. Danielle, and senior resident, Dr. Jamel Moreno MD PGY-1
--- NOTE | 2025-07-27 10:53 | PD.RESCONSUL ---
HPI Data of Consult Requesting Physician: Anila Poole DO Admitting Provider: Anila Poole DO Attending Provider: Anila Poole DO Primary Care Provider: Physician No Primary/Family Consult Narrative History of present illness: Brayden Rosa is a 40 yo male with no reported past medical history presents to the hospital for severe pain and swelling on the right anterior axillary region with fever and chills. This pain started a few days ago potentially due to a spider bite and progressed to swelling on his right arm and pain spreading to his right anterior chest causing dyspnea. He reports significant ongoing pain and a pounding headache secondary to the pain. Pt denies any focal motor or neurological deficits on the right upper extremity. He is currently NPO and verbally consented to surgery for incision and drainage of the mass. cc:: cc: Anila Poole DO Review of Systems Review of Systems Systems Reviewed: All systems reviewed, normal except as documented Exam Vital Signs Temp Pulse Resp BP Pulse Ox O2 Del Method 98.8 F 70 17 135/73 H 97 Room Air 07/27/25 08:00 07/27/25 08:00 07/27/25 08:00 07/27/25 08:00 07/27/25 08:00 07/27/25 08:00 Constitutional Constitutional: mild distress Routine Chest/Breast/Axilla Exam Comments: right upper chest with area of erythema and exquisite tenderness, blanching of skin with palpation, difficulty raising R arm above head Results Labs 07/27/25 05:42 07/27/25 05:42 Labs: Short CBC 07/26/25 07/27/25 Range/Units 11:40 05:42 WBC 25.9 H 25.4 H (3.8-10.6) Thou/mm3 Hgb 13.1 L 12.7 L (13.5-16.0) g/dL Hct 39.2 L 38.2 L (41.0-53.0) % Plt Count 217 241 (140-440) Thou/mm3 BMP 07/26/25 07/27/25 10:19 05:42 Sodium 127 L 139 D Potassium 4.2 4.2 Chloride 96 L 103 Carbon Dioxide 20.6 24.0 BUN < 5 L 6 L Creatinine 0.8 0.8 Glucose 204 H 148 H D Calcium 9.3 9.1 Cardiac Enzymes 07/26/25 Range/Units 11:40 Troponin I 0.033 (0.0-0.045) ng/mL Liver Function 07/26/25 07/27/25 Range/Units 10:19 05:42 Total Bilirubin 2.4 H 1.5 H D (0.3-1.2) mg/dL AST 29 21 (0-34) U/L ALT 76 H 54 H (10-49) U/L Alkaline Phosphatase 110 109 (46-116) U/L Albumin 4.6 4.2 (3.5-5.0) gm/dL Urine 07/26/25 07/26/25 Range/Units 10:41 19:48 Urine Color Yellow Lt-Yellow (Lt Yel-Yel) Urine Clarity Clear Clear (Clear/Hazy) Urine pH 7.5 H 7.0 (5.0-7.0) Ur Specific [place] 1.018 1.005 (1.001-1.035) Urine Protein 2+ A Trace (Neg - Trace) Urine Glucose (UA) Trace Negative (Negative) Quality Measures Quality Measures none Medications Home Medications and Allergies Home Medications ?Medication ?Instructions ?Recorded ?Confirmed ?Type diphenhydramine HCl 25 mg capsule 50 mg PO Q8H PRN allergy symptoms 07/26/25 07/26/25 History (Benadryl) ibuprofen 600 mg tablet 600 mg PO .q5 PRN pain 07/26/25 07/26/25 History Allergies Allergy/AdvReac Type Severity Reaction Status Date / Time No Known Allergies Allergy Verified 07/26/25 09:50 Visit Medications Acetaminophen (Acetaminophen 325 Mg Tablet) 650 mg PO Q6H PRN PRN Reason: PAIN OR FEVER > 100.3 Stop: 08/25/25 16:21 Last Admin: 07/27/25 00:02 Dose: 650 mg Sodium Chloride (Ns) 1,000 mls @ 125 mls/hr IV .Q8H SAI Stop: 08/25/25 15:30 Last Admin: 07/26/25 16:51 Dose: 125 mls/hr Cefepime HCl 2 gm/ Sodium (Chloride) 50 mls @ 100 mls/hr IV Q8HR SAI Stop: 08/02/25 19:59 Last Admin: 07/27/25 06:53 Dose: 100 mls/hr Vancomycin/Sodium Chloride (Vancomycin/Ns 1 Gm Ivpb) 200 mls @ 120 mls/hr IV Q8HR SAI; Protocol Stop: 08/02/25 16:44 Last Admin: 07/27/25 05:53 Dose: 120 mls/hr Ondansetron HCl (Ondansetron Inj 2 Mg/Ml Inj 2 Ml) 4 mg IV Q6H PRN; Protocol PRN Reason: NAUSEA OR VOMITING Stop: 08/25/25 16:21 Pharmacy Consult (Vancomycin Pharmacy To Dose 1 Each Each) 1 each IV QDAY PRN PRN Reason: PROTOCOL Stop: 08/25/25 16:44 Sennosides (Senna Tablet) 2 tab PO QDAY SAI; Protocol Stop: 08/26/25 08:59 Last Admin: 07/27/25 08:10 Dose: 2 tab Discontinued Medications Lactated Ringer's (Lactated Ringers) 1,000 mls @ 999 mls/hr IV .Q1H1M ONE Stop: 07/26/25 12:24 Last Infusion: 07/26/25 13:00 Dose: Infused Lactated Ringer's (Lactated Ringers) 1,000 mls @ 999 mls/hr IV .Q1H1M ONE Stop: 07/26/25 12:24 Last Infusion: 07/26/25 13:00 Dose: Infused Lactated Ringer's (Lactated Ringers) 1,000 mls @ 999 mls/hr IV .Q1H1M ONE Stop: 07/26/25 12:25 Last Infusion: 07/26/25 13:00 Dose: Infused Piperacillin/Tazobactam/Dextrose (Zosyn) 3.375 gm in 50 mls @ 100 mls/hr IV X1 ONE; Protocol Stop: 07/26/25 11:54 Last Infusion: 07/26/25 12:12 Dose: Infused Acetaminophen (Ofirmev Inj) 1,000 mg in 100 mls @ 250 mls/hr IV NOW ONE Stop: 07/26/25 12:58 Last Infusion: 07/26/25 13:51 Dose: Infused Acetaminophen (Ofirmev Inj) 1,000 mg in 100 mls @ 250 mls/hr IV X1 ONE Stop: 07/26/25 21:53 Last Admin: 07/26/25 21:42 Dose: Not Given Acetaminophen (Ofirmev Inj) 1,000 mg in 100 mls @ 250 mls/hr IV X1 ONE Stop: 07/27/25 01:16 Last Admin: 07/27/25 01:07 Dose: 250 mls/hr Morphine Sulfate (Morphine Sulf Inj 4 Mg/Ml Vial) 4 mg IVP X1 ONE Stop: 07/26/25 13:19 Last Admin: 07/26/25 13:29 Dose: 4 mg Ondansetron HCl (Ondansetron Inj 2 Mg/Ml Inj 2 Ml) 4 mg IVP X1 ONE; Protocol Stop: 07/26/25 13:19 Last Admin: 07/26/25 13:30 Dose: 4 mg Sennosides (Senna Tablet) 2 tab PO BID PRN; Protocol PRN Reason: CONSTIPATION Stop: 08/25/25 16:21 Assessment & Plan Assessment 40M presenting with right chest cellulitis, imaging negative for discrete fluid collection but given clinical appearance and severe pain I offered I&D at least to decompress the area. I explained the wound will need to be left open and could take weeks to fully heal. All questions were answered and pt is agreeable to proceeding
--- NOTE | 2025-07-27 11:05 | PC.SS ---
SS attempted to see patient this morning but patient went in for I&D surgery.
--- NOTE | 2025-07-27 11:33 | PD.SUROPNT ---
Date of Procedure 07/27/25 Pre Op Diagnosis Right chest wall abscess Post Op Diagnosis Same Procedure Incision and drainage of right chest wall abscess Findings Right chest abscess containing pus Procedure Description After discussion of risks and benefits, patient was brought to the operating room, SCDs were placed and general anesthesia was induced. He had already received antibiotics and was prepped and draped in the usual sterile fashion. After timeout an incision was made over the right lateral chest at the area of most fluctuance using a #15 blade. There was immediate return of pus from which a culture was taken. The incision was extended approximately 3 cm transversely and the wound was probed to break up any loculations. Approximately 30 cc of pus was returned in total. The wound was irrigated with Betadine, hydrogen peroxide and saline and hemostasis was achieved with electrocautery. The wound was packed with a Kerlix that had been soaked in Betadine and covered with fluffs and an abdominal pad which was secured with Medipore tape. Patient was extubated and brought to PACU in stable condition Pathology / specimen Other (Right chest abscess wound culture) Estimated Blood Loss 25 Surgeon Ambar Arteaga MD Surgical Staff Operation Date: 07/27/25 11:00 <No data on this case meets the specified criteria>
--- NOTE | 2025-07-27 11:36 | SUR.PHASEI ---
Pt. arrived to recovery via gurney, eyes closed, VSS, responds to verbal commands, lung sounds clear, equal expansion jenae., dressing to right side of chest, no active bleeding or redness noted, report received from Veronica CHRISTOPHER and Dr. Dinero.
--- NOTE | 2025-07-27 11:59 | SUR.PHASEI ---
Called and gave report on pt. s/p surgery to Alma Delia CHRISTOPHER on M/S unit.
--- NOTE | 2025-07-27 12:06 | SUR.PHASEI ---
Pt. transferred to room 359 via stephen, AAOx3, VSS, dressing to right side of chest CDI, IV flushed and patent, pt. is sitting up tolerating ice chips and sips of 7-up, no c/o pain or nausea at this time. Alma Delia CHRISTOPHER assumed care of pt.
--- NOTE | 2025-07-27 12:15 | PC.NURSE ---
Patient returned from surgery at this time. Patient denies pain. Dressing clean, dry and intact. Temperature 99.3.
[2025-07-27 21:58] LABS: Vancomycin,Trough 6.5 mcg/mL (5.0-10.0)
[2025-07-28] VITALS (8 sets, daily range): BP systolic 101–130; BP diastolic 61–79; PULSE 66–85; RESP 16–97; TEMP 36.1–37.2; O2SAT 93–99; BMI 28.4
[2025-07-28] MEDS: CEFEPIME INJ 2 GM in SODIUM CHLORIDE 0.9% (Popper) 50 ML IV ×3 (05:19→21:15)
[2025-07-28] MEDS: VANCOMYCIN/NS 1 GM IVPB 200 ML IV (06:42)
[2025-07-28 06:48] LABS: Basophils # (Auto) 0.1 Thou/mm3 (0.0-0.2); Basophils % (Auto) 0 % (0-2.5); Eosinophils # (Auto) 0.0 Thou/mm3 (0.0-0.5); Eosinophils % (Auto) 0 % (0-10); Hematocrit 37.0 % (41.0-53.0); Hemoglobin 12.4 g/dL (13.5-16.0); Immature Granulocytes Auto 0.54 Thou/mm3 (0.00-0.00); Lymphocytes # (Auto) 0.7 Thou/mm3 (1.0-4.8); Lymphocytes % (Auto) 2 % (10-50); Mean Corpuscular HGB Conc 33.5 g/dl (31.0-37.0); Mean Corpuscular Hemoglobin 31.1 pg (25.0-35.0); Mean Corpuscular Volume 93 fL (80-100); Monocytes # (Auto) 1.6 Thou/mm3 (0.0-0.8); Monocytes % (Auto) 5 % (0-12); Neutrophils # (Auto) 29.1 Thou/mm3 (1.8-7.7); Neutrophils % (Auto) 91 % (37-80); Nucleated Red Blood Cell # 0.00 Thou/mm3 (0.00-0.00); Nucleated Red Blood Cell % 0 /100 WBC (0); Platelet Count 302 Thou/mm3 (140-440); RDW Standard Deviation 41.7 fL (35.1-43.9); Red Blood Count 3.99 Miln/mm3 (4.50-5.90); White Blood Count 32.0 Thou/mm3 (3.8-10.6)
[2025-07-28 07:15] LABS: Alanine Aminotransferase 52 U/L (10-49); Albumin, Serum 4.1 gm/dL (3.5-5.0); Albumin/Globulin Ratio 1.3 (1.2-2.2); Alkaline Phosphatase 143 U/L (46-116); Anion Gap 11 (7-16); Aspartate Amino Transferase 20 U/L (0-34); BUN/Creatinine Ratio 14 Ratio (12-20); Bilirubin,Total 0.5 mg/dL (0.3-1.2); Blood Urea Nitrogen 10 mg/dL (9-23); Calcium 9.3 mg/dL (8.3-10.6); Calcium (Corrected) 9.3 mg/dL (8.5-10.1); Carbon Dioxide 23.9 mMol/L (20.0-31.0); Chloride 100 mMol/L (98-107); Creatinine (Component) 0.7 mg/dL (0.6-1.3); Estimated Creatinine Clearance 156.8 mL/min (>60); Globulin 3.2 gm/dL (2.3-3.5); Glucose 268 mg/dL (74-106); Osmolality,Calculated 278 (275-295); Potassium 3.7 mMol/L (3.4-5.1); Sodium 135 mMol/L (136-145); Total Protein 7.3 gm/dL (5.7-8.2); eGFR > 60 See Note
[2025-07-28 10:35] LABS: Lactate (Lactic Acid) 2.4 mMol/L (0.4-2.0)
--- NOTE | 2025-07-28 10:35 | ESPR_ITS ---
<Statement entered by Malachi Danielle MD - 08/06/25 07:14> I reviewed above note and agree with findings and plans. I have also personally examined the patient with medicine team and went over assessment and plan with medical team including leadership program intern and resident physician. <Statement entered by Tequila Webster MD - 07/28/25 14:48> Patient was seen and examined at bedside. No acute overnight events. Patient yesterday had a surgical I&D, with significant improvement of his symptoms. Labs and vitals were reviewed, WBC noted to be up trended, could be reactive, however will continue monitor for 1 more day. Continue IV antibiotics, broad- spectrum, will follow-up with blood cultures and de-escalate based on the cultures. Continue symptomatic management. Surgery was contacted, okay with short course of p.o. antibiotics upon discharge. Patient need to follow-up outpatient with wound clinic. All questions and concerns were addressed. Anticipate discharge in next 24 hours. I personally saw and examined the patient and discussed the assessment and plan with the entire medicine team, including my attending Dr. Danielle, Tequila Webster M.D. PGY-3 Disclaimer: Despite multiple revisions, due to the dictation software being used, the document bellow may not be free of grammatical errors including phonetic/typographic errors. However, this does not deter from our commitment to providing health care in the patient's best interest in mind. Documentation for date of: 07/28/25 Subjective Subjective Interval history: Yesterday patient received surgical incision and drainage of right chest wall abscess draining 30 cc of pus. Today his WBC count increased from 25.4 to 32.0. He is on IV vancomycin and and IV cefepime 2 g Q8HR. His blood culture has been negative for 48 hours x 2. Patient's vitals are stable and patient noted that his chest pain is gone and he is asymptomatic. He will be observed for 1 more day before discharge. Pending discharge within 24 to 48 hours. No Overnight events. Labs reviewed and patient examined at the bedside. Denies chest pain, palpation, SOB, abdominal pain, N/V, fevers or chills. Exam Vital Signs Temp Pulse Resp BP Pulse Ox O2 Del Method 97.8 F 70 18 118/71 96 Room Air 07/28/25 08:00 07/28/25 08:00 07/28/25 08:00 07/28/25 08:00 07/28/25 08:00 07/28/25 08:00 Narrative Exam General: No acute distress, well nourished, AAO x3 Eye: normal conjunctiva, no scleral icterus HENT: Normocephalic, atraumatic, hearing intact to conversation at normal volume, moist oral mucosa Neck: Supple, non-tender, no JVD, no lymphadenopathy Lungs: Non-labored respirations, symmetric chest rise, Clear to auscultate bilaterally, No wheezing, rhonchi, crackles Heart: Peripheral pulses intact bilaterally, Regular Rate and Rhythm. Abdomen: Soft, non-tender, non-distended, no palpable masses Musculoskeletal: Normal range of motion and strength, No cyanosis or edema, No visible joint swelling Skin: Skin is warm, dry, fluffs on right chest covering incision site. No erythema or drainage. Psychiatric: Cooperative, appropriate mood and affect, Awake and alert, not agitated Neuro: Cranial nerves II-XII grossly intact. Strength 5/5 throughout. Sensations intact to light touch. Objective Labs 07/28/25 06:01 07/28/25 06:01 Labs: Laboratory Results - last 24 hr 07/27/25 07/28/25 21:07 06:01 WBC 32.0 H D RBC 3.99 L Hgb 12.4 L Hct 37.0 L MCV 93 MCH 31.1 MCHC 33.5 RDW Std Deviation 41.7 Plt Count 302 D Neut % (Auto) 91 H Lymph % (Auto) 2 L [place] % (Auto) 5 Eos % (Auto) 0 Baso % (Auto) 0 Neut # (Auto) 29.1 H Lymph # (Auto) 0.7 L [place] # (Auto) 1.6 H Eos # (Auto) 0.0 Baso # (Auto) 0.1 Immature Gran # (Auto) 0.54 H Absolute Nucleated RBC 0.00 Immature Gran % 2 H Nucleated RBC % 0 Sodium 135 L Potassium 3.7 D Chloride 100 Carbon Dioxide 23.9 Anion Gap 11 BUN 10 Creatinine 0.7 Estim Creat Clear Calc 156.8 eGFR > 60 BUN/Creatinine Ratio 14 Glucose 268 H D Calculated Osmolality 278 Calcium 9.3 Corrected Calcium 9.3 Total Bilirubin 0.5 D AST 20 ALT 52 H Alkaline Phosphatase 143 H D Total Protein 7.3 Albumin 4.1 Globulin 3.2 Albumin/Globulin Ratio 1.3 Vancomycin Trough 6.5 Quality Measures Quality Measures none Assessment & Plan Assessment Current Active Medications: Generic Name Dose Route Start Last Admin Trade Name Freq PRN Reason Stop Dose Admin Acetaminophen 650 mg 07/26/25 16:22 07/27/25 19:06 Acetaminophen 325 Mg Tablet PO 08/25/25 16:21 650 mg Q6H PRN Administration PAIN OR FEVER > 100.3 Dextrose 25 ml 07/28/25 08:22 Dextrose 50%-Water Inj 50 Ml Syringe IV 08/27/25 08:21 Q15MIN PRN BG 50-70 responsive npo pt Dextrose 50 ml 07/28/25 08:22 Dextrose 50%-Water Inj 50 Ml Syringe IV 08/27/25 08:21 Q15MIN PRN BG <50 OR BG <70 & pt unresponsive Glucagon 1 mg 07/28/25 08:22 Glucagon Inj 1 Mg Vial IM Q15MIN PRN BG <70, and no IV access Cefepime HCl 2 gm/ Sodium 50 mls @ 100 mls/hr 07/26/25 20:00 07/28/25 05:19 Chloride IV 08/02/25 19:59 100 mls/hr Q8HR SAI Administration Vancomycin HCl/Dextrose 300 mls @ 120 mls/hr 07/28/25 14:00 Vancomycin/D5w 1500 Mg Ivpb IV 08/04/25 13:59 Q8HR SAI Protocol Insulin Human Lispro 0 unit 07/28/25 11:30 Insulin Lispro (Admelog) 1 Unit/0.01 Ml Unit SC 08/27/25 11:29 AC SAI Protocol Ondansetron HCl 4 mg 07/26/25 16:22 Ondansetron Inj 2 Mg/Ml Inj 2 Ml IV 08/25/25 16:21 Q6H PRN NAUSEA OR VOMITING Protocol Pharmacy Consult 1 each 07/26/25 16:45 Vancomycin Pharmacy To Dose 1 Each Each IV 08/25/25 16:44 QDAY PRN PROTOCOL Sennosides 2 tab 07/27/25 09:00 07/28/25 08:32 Senna Tablet PO 08/26/25 08:59 2 tab QDAY SAI Administration Protocol Plan 40-year-old male with no reported past medical history, positive meth and marijuana use, patient presents to the emergency department today for complaints of pain and swelling in the right side of his chest and axilla for the past 4 days. Patient admitted for spesis 2/2 to cellulitis of right axilla. #Sepsis secondary to cellulitis In the ER, a sepsis alert was activated, and the patient received Zosyn 3.375 g, Tylenol, IV morphine 4 mg, Zofran, and a 3 L IV fluid bolus. Blood and urine cultures were collected. On physical exam, there is swelling in the right axilla, and CT imaging is concerning for a fluid-filled abscess with extensive involvement of the lower chest wall beneath the right pectoralis muscle. However, ultrasound of the right arm ruled out an abscess, suggesting an enlarged lymph node instead. General surgery is consulted, Dr. Atreaga to follow the patient recommended admit the patient with IV antibiotics. Antibiotic therapy with vancomycin and cefepime, will de-escalate once microbiology results. -On 07/27, patient received surgical incision and drainage of right chest wall abscess draining 30 cc of pus. -In 07/28, his WBC count increased from 25.4 to 32.0. -Blood culture has been negative for 48 hours x 2. Plan: ? Gen surgery, dr Arteaga is consulted, appreciate recommendations.. ? IV vancomycin, pharmacy to dose?pending MRSA nasal screen, initiated 07/26/2025 - ? IV cefepime 2 g every 8 hours, initiated 07/26/2025 - #Syphilis Serology positive Plan - Pending confirmatory (Tpallidum ab) #Transaminasemia Noted elevated bilirubin and elevated ALT, denied IV drug abuse Viral hepatitis panel negative Plan ? Continue to monitor #Lymphopenia Leukocytosis, likely in the setting of sepsis with neutrophilia, but absolute lymphocyte is decreased 0.6, concern for STDs, will order HIV serology. Health maintenance Disposition: Med surg DVT prophylaxis: Heparin subcut GI prophylaxis: none Diet: regular CODE STATUS: Full Assessment and plan discussed with my attending physician Dr. Danielle and Dr. Webster (PGY-3) Dr. Thurman (PGY-1) - Internal medicine resident
[2025-07-28] MEDS: INSULIN LISPRO (AdmeLOG) 1 UNIT/0.01 ML UNIT SC ×2 (11:25→17:06)
[2025-07-28] MEDS: ACETAMINOPHEN 325 MG TABLET 650 MG PO (11:26)
--- NOTE | 2025-07-28 12:01 | PC.SS ---
Follow up note: Pt is on IV antibiotic.
[2025-07-28 13:32] LABS: Reflex Lactate? Y
[2025-07-28 14:15] LABS: Lactic Acid, 3 HR 2.7 mMol/L (0.4-2.0)
[2025-07-28] MEDS: VANCOMYCIN/D5W 1500 MG IVPB 300 ML 120 MG IV ×2 (14:36→22:18)
--- NOTE | 2025-07-28 16:25 | PC.SS ---
SS met with patient regarding his d/c plan. Pt is alert/oriented. Pt was admitted for Cellulitis. Pt confirmed demographic and contact information is correct on facesheet. Pt resides with friends. Pt ambulates independently without assistance or DME. Pt is ok with all ADLs. Patient?s pharmacy of choice is [facility]. Pt named his friend, Juli Velazquez medical decision maker if he is unable. Patient?s choice is to return home upon d/c. Pt does not have an advance directive, SS offered, and pt declined. Pt states he is not diabetic and is not on dialysis. Friend will provide transportation home. D/C plan: Return home Next of Kin: phone# PCP: Will establish at [facility] Address: Correct on facesheet
[2025-07-28] MEDS: SODIUM CHLORIDE 0.9% 1000 ML 1,000 ML 75 ML IV (17:04)
--- NOTE | 2025-07-28 17:52 | PC.NURSE ---
Dr. Arteaga called and gave me orders to do dressing change. I had to call doctors and notified them patient wants to go AMA. Dr. Webster came to patients bed side and explained to patient why he should stay. To continue IV antibiotics and get appropriate dressing changes for wound. Patient decided to stay. f
[2025-07-28 18:52] LABS: Lactate (Lactic Acid) 2.0 mMol/L (0.4-2.0)
[2025-07-29] VITALS (7 sets, daily range): BP systolic 107–115; BP diastolic 63–78; PULSE 61–70; RESP 16–97; TEMP 36.1–36.6; O2SAT 95–98
[2025-07-29] MEDS: CEFEPIME INJ 2 GM in SODIUM CHLORIDE 0.9% (Popper) 50 ML IV (05:35)
[2025-07-29 05:50] LABS: Basophils # (Auto) 0.1 Thou/mm3 (0.0-0.2); Basophils % (Auto) 1 % (0-2.5); Eosinophils # (Auto) 0.0 Thou/mm3 (0.0-0.5); Eosinophils % (Auto) 0 % (0-10); Hematocrit 33.3 % (41.0-53.0); Hemoglobin 11.3 g/dL (13.5-16.0); Immature Granulocytes Auto 1.04 Thou/mm3 (0.00-0.00); Lymphocytes # (Auto) 1.4 Thou/mm3 (1.0-4.8); Lymphocytes % (Auto) 6 % (10-50); Mean Corpuscular HGB Conc 33.9 g/dl (31.0-37.0); Mean Corpuscular Hemoglobin 30.1 pg (25.0-35.0); Mean Corpuscular Volume 89 fL (80-100); Monocytes # (Auto) 1.5 Thou/mm3 (0.0-0.8); Monocytes % (Auto) 6 % (0-12); Neutrophils # (Auto) 20.2 Thou/mm3 (1.8-7.7); Neutrophils % (Auto) 83 % (37-80); Nucleated Red Blood Cell # 0.00 Thou/mm3 (0.00-0.00); Nucleated Red Blood Cell % 0 /100 WBC (0); Platelet Count 306 Thou/mm3 (140-440); RDW Standard Deviation 40.6 fL (35.1-43.9); Red Blood Count 3.75 Miln/mm3 (4.50-5.90); White Blood Count 24.3 Thou/mm3 (3.8-10.6)
[2025-07-29 06:09] LABS: Alanine Aminotransferase 68 U/L (10-49); Albumin, Serum 3.8 gm/dL (3.5-5.0); Albumin/Globulin Ratio 1.6 (1.2-2.2); Alkaline Phosphatase 109 U/L (46-116); Anion Gap 11 (7-16); Aspartate Amino Transferase 34 U/L (0-34); BUN/Creatinine Ratio 15 Ratio (12-20); Bilirubin,Total 0.4 mg/dL (0.3-1.2); Blood Urea Nitrogen 9 mg/dL (9-23); Calcium 8.8 mg/dL (8.3-10.6); Calcium (Corrected) 9.0 mg/dL (8.5-10.1); Carbon Dioxide 24.5 mMol/L (20.0-31.0); Chloride 105 mMol/L (98-107); Creatinine (Component) 0.6 mg/dL (0.6-1.3); Estimated Creatinine Clearance 182.9 mL/min (>60); Globulin 2.4 gm/dL (2.3-3.5); Glucose 164 mg/dL (74-106); Osmolality,Calculated 282 (275-295); Potassium 3.8 mMol/L (3.4-5.1); Sodium 140 mMol/L (136-145); Total Protein 6.2 gm/dL (5.7-8.2); eGFR > 60 See Note
[2025-07-29] MEDS: VANCOMYCIN/D5W 1500 MG IVPB 300 ML 120 MG IV (06:15)
[2025-07-29] MEDS: ACETAMINOPHEN 325 MG TABLET 650 MG PO (08:13)
--- NOTE | 2025-07-29 08:48 | ESDS_ITS ---
Planned Discharge Date 07/29/25 DS: Providers Provider Date of admission: 07/26/25 16:22 Primary care physician: Physician No Primary/Family Admitting Provider: Anila Poole DO Attending Provider on Admission: Anila Poole DO Consults: 07/26/25 14:52 Consult to General Surgery Stat Comment: Consulting Provider: Ambar Arteaga 07/28/25 08:22 Referral Registered Dietitian Routine Comment: Attending Provider on DC: Rola Thurman DO Discharging Provider: Rola Thurman DO DS: Diagnosis Problem List Completed Was Problem List Reviewed/Reconciled?: Yes Hospital Course Hospital Course Hospital course: Summary: 40-year-old male with no reported past medical history, positive meth and marijuana use, patient presents to the emergency department today for complaints of pain and swelling in the right side of his chest and axilla for the past 4 days. Patient admitted for spesis 2/2 to cellulitis of right axilla. Was given IV abx. Patient received incision and drainage of the right chest wall abscess and was discharged with PO antibiotics. ED course: In the ER, sepsis alert was initiated patient was given Zosyn 3.375 g, Tylenol, IV morphine 4 mg, Zofran x 1, and 3 L IV fluid bolus. Blood and urine cultures were taken. CT scan of the chest showed very large focus of probable infection in the right axilla extending along the lower chest wall beneath right pectoralis muscle, recommended ultrasound to rule out probable abscess, ultrasound right arm showed diffuse edema in the axilla, enlarged lymph node 2.6 x1.5 x 3.1 cm. No fluid- filled drainable abscess. CBC pertinent for leukocytosis, WBC 25.9, with significant neutrophilia, but absolute lymphocyte is decreased 0.6, increased monocytes, CHEM panel shows sodium 127, glucose 204, lactic acid 2.1, T. bili 2.4, ALT 76. Procalcitonin 0.38. Urinalysis shows 2+ proteins in the urine, U tox positive for meth and marijuana. EKG showed sinus rhythm. Hospital Course: Upon admission, patient was given IV vancomycin and IV cefepime 2 g Q8HR. And general surgery Dr. Arteaga, has been consulted. On 07/27, patient has received incision and drainage of the right chest wall abscess during which approximately 30 cc of pus has been removed. Blood culture was negative for 48 hours x 2. Urine culture was negative. After the surgery, patient has remained 1 more day on 07/28 because of the spike of WBC from 25.4 to 32.0. The next day 07/29, his WBC decreased from 32.0 to 24.3. His vitals were stable and has been afebrile since 07/28. As he was positive on Syphilis serology and he was never treated for syphilis, he received IM penicillin G injection x1. Patient has been discharged with keflex 500mg q6hr for 5 days. Instructions: Take keflex(cephalexin)500 mg every 6 hours for 5 more days to complete antibiotic course take it everyday, do not skip the dose, even if your symptoms improved keep area clean and dry take as needed pain medication such as Tylenol follow up with wound care follow up with surgery outpatient. returne to ED if symptoms worsens. follow up outpatient with PCP in 1-2 weeks after discharge You were tested positive for syphilis and received IM penicillin dose inpatient. After the Injection ? Injection Site Care: * Injection Site: You may experience mild pain, redness, or swelling at the site where the injection was given. This is normal and should improve within a few days. * Ice or Heat: If you experience pain or swelling, applying a cold compress (ice pack) for 20 minutes can help reduce discomfort. After 24?48 hours, you can apply heat to the area if it feels stiff. * Avoid Rubbing: Do not rub or massage the injection site as this can irritate the area further. * Watch for Signs of Infection: If you notice increased redness, warmth, swelling, or pus at the injection site, or if you develop a fever, contact your doctor immediately. Sexual Activity and Syphilis Treatment * Avoid Sexual Contact: After receiving a syphilis injection, it is essential to avoid sexual activity (oral, vaginal, or anal) until you have completed tr eatmEnt and received follow-up tests. This helps prevent spreading the infection to others. * Inform Your Partners: Inform your sexual partners that you have been treated for syphilis so they can get tested and treated if necessary. * Appointment for August 01, 2025 at 10:45am with Dr. Irby at [facility] * Follow up with Wound Clinic information. Dressing Change Home Care Instructions: RIGHT CHEST WALL ABSCESS You have a wound that needs special care to heal.? Your body will make the new skin needed to close your wound, but you have to help.? Germs and old skin on the wound have to be removed.? This is done by changing the dressing on the wound as directed by your doctor. Wound:? Supplies/Equipment (keep all supplies in one place clean and dry) o?? Normal Saline (salt water) solution.? You can make you own by boiling 2 cups of water with ? teaspoon of salt for 10 minutes.? Keep in a glass jar in the refrigerator and make a new batch every day. o?? Clean/Irrigate wound with ?normal saline or wound cleanser o?? Medication for wound: normal saline moistened gauze o?? Primary dressing ? o?? Secondary dressing: dry gauze and gauze roll o?? Tape o?? Gloves o?? Q-tips o?? Small trash bag o?? Other supplies Follow these instructions: 1.??? Wash your hands with soap and water. 2.??? Gather all your supplies and place on a clean towel or paper towel. 3.??? Put on gloves.- 4.??? Remove all of the old dressing (including gauze packing if any) and put in the trash bag. 5.??? Take off the gloves and put in trash bag. 6.??? If not using gloves wash your hands again or put on new gloves. 7.??? Irrigate wound with Normal saline. ?Place gauze in trash bag. Wound care: Remove dressing than wash hands. Cleanse wound with wound cleanser spray and pat dry than wash hands again. Pack wound with 1 inch plain packing and cover with cover dressings twice daily and as needed for falling off or soiling after using the restroom. Please keep wound covered, clean and dry. ? Notify primary doctor or return to Emergency Room if any of the following: ? Fever above 100.6? F. ? Increased pain ? Increase swelling ? Red streaks around your wound ? Drainage becomes foul smelling or changes color ? The wound is larger or deeper ? The wound looks dried out or dark ? Bleeding that does not stop with holding pressure Special Instructions: Follow up with Dr. Whitehead at [facility] Wound Healing Department. Call [phone] to make appointment. #Sepsis secondary to cellulitis #Syphilis #Transaminasemia #Lymphopenia Assessment and plan discussed with my attending physician Dr. Rutledge and Dr. Webster (PGY-3) Dr. Thurman (PGY-1) - Internal medicine resident Status at Discharge Overall status at discharge: patient is progressing back to baseline Time Spent with Patient Time attestation: Total time spent providing and/or coordinating discharge services: Time spent: Greater than 30 minutes Exam Vital Signs Temp Pulse Resp BP Pulse Ox O2 Del Method 97.9 F 70 18 115/63 98 Room Air 07/29/25 07:53 07/29/25 07:53 07/29/25 07:53 07/29/25 07:53 07/29/25 07:53 07/29/25 07:53 Narrative Exam General: No acute distress, well nourished, AAO x3 Eye: normal conjunctiva, no scleral icterus HENT: Normocephalic, atraumatic, hearing intact to conversation at normal volume, moist oral mucosa Neck: Supple, non-tender, no JVD, no lymphadenopathy Lungs: Non-labored respirations, symmetric chest rise, Clear to auscultate bilaterally, No wheezing, rhonchi, crackles Heart: Peripheral pulses intact bilaterally, Regular Rate and Rhythm. Abdomen: Soft, non-tender, non-distended, no palpable masses Musculoskeletal: Normal range of motion and strength, No cyanosis or edema, No visible joint swelling Skin: Skin is warm, dry, fluffs on right chest covering incision site. No erythema or drainage. Psychiatric: Cooperative, appropriate mood and affect, Awake and alert, not agitated Neuro: Cranial nerves II-XII grossly intact. Strength 5/5 throughout. Sensations intact to light touch. Discharge Plan Plan Patient Disposition: HOME (Self Care) Patient condition on transfer: Stable Care Plan Goals: Take keflex(cephalexin)500 mg every 6 hours for 5 more days to complete antibiotic course take it everyday, do not skip the dose, even if your symptoms improved keep area clean and dry take as needed pain medication such as Tylenol follow up with wound care follow up with surgery outpatient. returne to ED if symptoms worsens. follow up outpatient with PCP in 1-2 weeks after discharge You were tested positive for syphilis and recieved Im penicillin dose inpatient. After the Injection ? Injection Site Care: * Injection Site: You may experience mild pain, redness, or swelling at the site where the injection was given. This is normal and should improve within a few days. * Ice or Heat: If you experience pain or swelling, applying a cold compress (ice pack) for 20 minutes can help reduce discomfort. After 24?48 hours, you can apply heat to the area if it feels stiff. * Avoid Rubbing: Do not rub or massage the injection site as this can irritate the area further. * Watch for Signs of Infection: If you notice increased redness, warmth, swelling, or pus at the injection site, or if you develop a fever, contact your doctor immediately. Sexual Activity and Syphilis Treatment * Avoid Sexual Contact: After receiving a syphilis injection, it is essential to avoid sexual activity (oral, vaginal, or anal) until you have completed treatmEnt and received follow-up tests. This helps prevent spreading the infection to others. * Inform Your Partners: Inform your sexual partners that you have been treated for syphilis so they can get tested and treated if necessary. * Appointment for August 01, 2025 at 10:45am with Dr. Irby at [facility] * Follow up with Wound Clinic information. Dressing Change Home Care Instructions: RIGHT CHEST WALL ABSCESS You have a wound that needs special care to heal.? Your body will make the new skin needed to close your wound, but you have to help.? Germs and old skin on the wound have to be removed.? This is done by changing the dressing on the wound as directed by your doctor. Wound:? Supplies/Equipment (keep all supplies in one place clean and dry) o?? Normal Saline (salt water) solution.? You can make you own by boiling 2 cups of water with ? teaspoon of salt for 10 minutes.? Keep in a glass jar in the refrigerator and make a new batch every day. o?? Clean/Irrigate wound with ?normal saline or wound cleanser o?? Medication for wound: normal saline moistened gauze o?? Primary dressing ? o?? Secondary dressing: dry gauze and gauze roll o?? Tape o?? Gloves o?? Q-tips o?? Small trash bag o?? Other supplies Follow these instructions: 1.??? Wash your hands with soap and water. 2.??? Gather all your supplies and place on a clean towel or paper towel. 3.??? Put on gloves.- 4.??? Remove all of the old dressing (including gauze packing if any) and put in the trash bag. 5.??? Take off the gloves and put in trash bag. 6.??? If not using gloves wash your hands again or put on new gloves. 7.??? Irrigate wound with Normal saline. ?Place gauze in trash bag. Wound care: Remove dressing than wash hands. Cleanse wound with wound cleanser spray and pat dry than wash hands again. Pack wound with 1 inch plain packing and cover with cover dressings twice daily and as needed for falling off or soiling after using the restroom. Please keep wound covered, clean and dry. ? Notify primary doctor or return to Emergency Room if any of the following: ? Fever above 100.6? F. ? Increased pain ? Increase swelling ? Red streaks around your wound ? Drainage becomes foul smelling or changes color ? The wound is larger or deeper ? The wound looks dried out or dark ? Bleeding that does not stop with holding pressure Special Instructions: Follow up with Dr. Whitehead at [facility] Wound Healing Department. Call [phone] to make appointment. Prescriptions/Referrals Prescriptions/Med Rec: New cephalexin 500 mg capsule 500 mg PO Q6HR 5 Days Qty: 20 0RF Continued ibuprofen 600 mg tablet 600 mg PO .q5 PRN (Reason: pain) Patient Comments: Over the counter Rx Instructions: Q5 hours prn diphenhydramine HCl [Benadryl] 25 mg capsule 50 mg PO Q8H PRN (Reason: allergy symptoms) Rx Instructions: reason: I don't know, I thought it will help Over the counter Referrals: No Primary/Family,Physician [Primary Care Provider] Patient/Caregiver Discharge Instructions Discharge Activity: activity as tolerated Education Materials: Rapid Plasma Reagin, What Are Sexually Transmitted ..., Understanding STIs, Syphilis, Discharge Instructions for Cellulitis, Preventing Surgical Site Infections Print Language: Georgian Stand Alone Forms: Linda Award Info., Patient Portal Info Letter Discharge Order Discharge Orders: Discharge (Routine); Ordered 07/29/25 Ordered By: Tequila Webster Quality Discharge Quality Measures VTE prophylaxis Attestestation MD Attestation I have examined the patient, reviewed labs and imaging findings, discussed the case with the resident(s), and reviewed entered orders. I agree with the plan of care as outlined in this note. Time Spent: [address] Aamir MD
--- NOTE | 2025-07-29 12:21 | PC.SS ---
SS met with pt who is requesting to establish PCP at the [facility] on [address] SS spoke to Mt from [facility] and scheduled pt an appointment for August 01, 2025 at 10:45am with Dr. Irby. SS provided pt with The Community Resource List which contains the PCP appointment information and Wound Clinic information. SS has sent referral to out Patient Wound Clinic. [facility] ? Open?? Closes 7?PM
[2025-07-29] MEDS: PEN G BENZ (Bicillin LA) 2.4 MMU/4 ML SYRG IM (12:22)
== END 2025-07-29 13:08 | disposition home or self-care (01) | DRG 710 ==
LOC: SERX 15:29 → S3NX 07-27 10:12 → SERHOLD 07-28 05:52
PROVIDERS: Nurse Practitioner Primary Care; Registered Nurse General Practice; Student in an Organized Health Care Education/Training Program; Surgery; Admitting Provider Internal Medicine; Emergency Provider Emergency Medicine; Visit Provider Student in an Organized Health Care Education/Training Program
DX: A41.9 Sepsis, unspecified organism (principal); L02.213 Cutaneous abscess of chest wall; L03.111 Cellulitis of right axilla; R74.01 Elevation of levels of liver transaminase levels; R73.9 Hyperglycemia, unspecified; A53.9 Syphilis, unspecified
CPT/HCPCS: 36415; 71046; 71260; 76882; 80053; 80061; 80074; 80202; 80307; 81001; 83036; 83605; 83615; 83690; 83735; 83880; 84100; 84145; 84484; 85025; 85610; 85730; 86703; 86780; 87040; 87070; 87077; 87081; 87086; 87186; 87205; 93005; 96361; 96365; 96366; 96375; 99285; A4217; A4649; J0131; J0561; J0692; J1100; J1171; J1815; J2270; J2405; J2543; J2704; J2765; J3010; J3373; J3490; J7030; J7050; J7120; Q9967; A9270